=== PATIENT | female | born 1940 | race Caucasian/White ===

== ENCOUNTER 2018-01-17 10:02 | Outpatient (CLI) | payer MEDICARE | END 2018-01-17 10:03 | disposition home or self-care (01) | LOC: BICMAMMO 10:02 | PROVIDERS: ATTEND Family Medicine | DX: Z12.31 Encounter for screening mammogram for malignant neoplasm of breast (principal) | CPT/HCPCS: 77063; 77067 ==

== ENCOUNTER 2019-01-18 08:20 | Outpatient (CLI) | payer MEDICARE ==
--- NOTE | 2019-01-18 09:17 | MMO ---
Bilateral MAMMO Bilat Screen [facility]. CLINICAL HISTORY: Patient is 79 years old and is seen for screening. The patient has no family history of breast cancer. The patient has no personal history of cancer. VIEWS: The views performed were: bilateral craniocaudal with tomosynthesis and bilateral mediolateral oblique with tomosynthesis. FILMS COMPARED: The present examination has been compared to prior imaging studies performed at on 11/17/2006, 11/29/2006, 12/06/2007, 01/02/2009, 01/06/2011, 01/09/2012, 01/09/2013, 01/10/2014, 01/12/2015, 01/15/2016, 01/16/2017 and 01/17/2018. MAMMOGRAM FINDINGS: There are scattered fibroglandular densities. Finding 1: There are stable benign appearing calcifications seen in both breasts. There are also vascular calcifications. Finding 2: There are stable benign appearing densities seen in both breasts. There are no suspicious masses, suspicious calcifications, or new areas of architectural distortion. IMPRESSION: THERE IS NO MAMMOGRAPHIC EVIDENCE OF MALIGNANCY. A ROUTINE FOLLOW-UP MAMMOGRAM IN 1 YEAR IS RECOMMENDED. THE RESULTS OF THIS EXAM WERE SENT TO THE PATIENT. ACR BI-RADS Category 2 - Benign finding MAMMOGRAPHY NOTE: 1. A negative mammogram report should not delay a biopsy if a dominant of clinically suspicious mass is present. 2. Approximately 10% to 15% of breast cancers are not detected by mammography. 3. Adenosis and dense breasts may obscure an underlying neoplasm.
== END 2019-01-18 08:21 | disposition home or self-care (01) ==
LOC: BICMAMMO 08:20
PROVIDERS: ATTEND Family Medicine
DX: Z12.31 Encounter for screening mammogram for malignant neoplasm of breast (principal)
CPT/HCPCS: 77063; 77067

== ENCOUNTER 2021-11-15 16:38 | Outpatient (CLI) | payer MEDICARE ==
[2021-11-15 17:42] LABS: Hemoglobin 12.2 g/dL (12.0-15.5); Mean Corpuscular HGB CONC 31.9 g/dL (32.0-36.0); Mean Corpuscular Hemoglobin 30.7 pg (27.0-33.0); Mean Corpuscular Volume 96.2 fl (81.6-98.3); Mean Platelet Volume 10.8 fl (7.4-10.4); Platelet Count 208 10x3/uL (150-450); RBC Distribution Width 13.2 % (11.5-14.5); Red Blood Cell (RBC) Count 3.98 10x6/uL (3.90-5.03); White Blood Cell (WBC) Count 5.1 10x3/uL (3.5-10.5)
[2021-11-15 18:04] LABS: Anion Gap 16 mmol/L (10-20); BUN (Urea Nitrogen) 25 mg/dL (9.8-20.1); Calc. Creatinine Clearance 0 mL/min (70-130); Calcium 9.4 mg/dL (7.8-10.44); Carbon Dioxide 25 mmol/L (23-31); Chloride 105 mmol/L (98-107); Glucose 118 mg/dL (83-110); Sodium 142 mmol/L (136-145)
[2021-11-16 03:10] LABS: SARS-CoV-2 PCR by NAA Not Detected (NotDetected)
== END 2021-11-15 16:39 | disposition home or self-care (01) ==
LOC: LABBT 16:38
PROVIDERS: ATTEND Specialist
DX: Z01.812 Encounter for preprocedural laboratory examination (principal); H91.90 Unspecified hearing loss, unspecified ear; H71.02 Cholesteatoma of attic, left ear; H93.8X9 Other specified disorders of ear, unspecified ear; Z20.822 Contact with and (suspected) exposure to COVID-19
CPT/HCPCS: 80048; 85027; U0003; U0005

== ENCOUNTER 2021-11-18 08:08 | Day surgery (SDC) | payer MEDICARE ==
[2021-11-17 09:24] VITALS: BMI 36.7
[2021-11-18] MEDS ORDERED: AFRIN NASAL MIST 15 ML BOT ONE (08:51)
[2021-11-18] MEDS ORDERED: Ciprofloxacin 0.2% Otic (0.25ML CONTAINER) ONE (09:27)
[2021-11-18] MEDS ORDERED: Bacitracin Zinc Ointment 30 gm TUBE ONE (09:27)
[2021-11-18] MEDS ORDERED: EPINEPHrine 1 MG/ML AMP ONE (09:27)
[2021-11-18] MEDS ORDERED: Xylocaine 1% w/ Epi 1:100K 10 ML VIAL ONE (09:27)
[2021-11-18] MEDS ORDERED: Phenylephrine 10 MG/ML VIAL ONE (09:38)
[2021-11-18] MEDS ORDERED: Fentanyl 250 MCG/5 ML VIAL ONE (09:38)
[2021-11-18] MEDS ORDERED: Ondansetron PF 4 MG/2 ML Vial ONE ×2 (10:01→11:48)
[2021-11-18] MEDS ORDERED: Rocuronium Bromide 10 MG/ML (10ML VIAL) ONE (10:01)
[2021-11-18] MEDS ORDERED: Dexamethasone 20 MG/5 ML VIAL ONE (10:01)
[2021-11-18] MEDS ORDERED: Lidocaine 1% PF 5 ML VIAL ONE (10:01)
[2021-11-18] MEDS ORDERED: PROPOFOL 200 MG/20 ML VIAL ONE (10:01)
[2021-11-18] MEDS ORDERED: ePHEDrine 50 MG/ML VIAL ONE (10:01)
[2021-11-18] MEDS ORDERED: SUGAMMADEX SODIUM 200 MG/2 ML VIAL ONE (10:33)
[2021-11-18] MEDS ORDERED: Promethazine HCl 25 MG/ML VIAL ONE ×2 (11:48→12:21)
== END 2021-11-18 14:05 | disposition home or self-care (01) ==
LOC: SDC 08:08
PROVIDERS: ATTEND Specialist
PROC: 09U887Z Supplement Left Tympanic Membrane with Autologous Tissue Substitute, Via Natural or Artificial Opening Endoscopic (ICD-10-PCS; principal; 2021-11-18)
PROC: 0JB00ZZ Excision of Scalp Subcutaneous Tissue and Fascia, Open Approach (ICD-10-PCS; 2021-11-18)
DX: H71.02 Cholesteatoma of attic, left ear (principal); H72.02 Central perforation of tympanic membrane, left ear; L40.9 Psoriasis, unspecified; E78.00 Pure hypercholesterolemia, unspecified; J45.909 Unspecified asthma, uncomplicated; K21.9 Gastro-esophageal reflux disease without esophagitis; I48.91 Unspecified atrial fibrillation; I12.9 Hypertensive chronic kidney disease with stage 1 through stage 4 chronic kidney disease, or unspecified chronic kidney disease; N18.30 Chronic kidney disease, stage 3 unspecified; M19.90 Unspecified osteoarthritis, unspecified site; R73.03 Prediabetes; Z79.01 Long term (current) use of anticoagulants; Z79.899 Other long term (current) drug therapy
CPT/HCPCS: 88304; J0171; J1100; J2370; J2405; J2550; J2704; J3010; J3490

== ENCOUNTER 2023-09-07 09:53 | Outpatient (CLI) | payer MEDICARE | END 2023-09-07 09:54 | disposition home or self-care (01) | LOC: BICMAMMO 09:53 | PROVIDERS: ATTEND Family Medicine | DX: Z12.31 Encounter for screening mammogram for malignant neoplasm of breast (principal) | CPT/HCPCS: 77063; 77067 ==

== ENCOUNTER 2023-09-15 09:00 | Outpatient (CLI) | payer MEDICARE | END 2023-09-15 09:01 | disposition home or self-care (01) | LOC: BICMAMMO 09:00 | PROVIDERS: ATTEND Family Medicine | DX: Z13.820 Encounter for screening for osteoporosis (principal); M85.851 Other specified disorders of bone density and structure, right thigh; M85.852 Other specified disorders of bone density and structure, left thigh | CPT/HCPCS: 77080 ==